=== PATIENT | female | born 1945 | race Caucasian/White ===

== ENCOUNTER 2019-09-28 22:22 | Emergency (ER) | payer MEDICARE, OTHER ==
[2019-09-28] MEDS ORDERED: XYLOCAINE 1%/Epi 1:100000 MDV 20 ML IJ ONE (22:35)
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
[2019-09-28 23:05] VITALS: O2SAT 97
[2019-09-29] MEDS ORDERED: Adacel Vial IM ONE ×2 (00:08)
[2019-09-29 00:32] VITALS: BP 105/66; PULSE 71
--- NOTE | 2019-09-29 09:39 | XRAY ---
Indication: Head injury with laceration. Multiple contiguous axial images obtained through the head without contrast. Comparison: None. Minimal periventricular degenerative micro-ischemia bilaterally. No acute intracranial hemorrhage, abnormal extra-axial fluid collection, or mass effect. Fourth ventricle is midline without hydrocephalus. Cortes-white matter differentiation preserved. Scalp laceration near the vertex. Bony calvarium intact. Visualized paranasal sinuses and mastoid air cells are clear. Impression: Minimal degenerative micro-ischemia. Scalp laceration. No underlying fracture or acute intracranial abnormalities. Comment: Preliminary interpretation was made by [facility]. No critical discrepancy. CTDI 43.07
== END 2019-09-29 00:35 | disposition home or self-care (01) ==
LOC: ED 22:22
DX: S01.01XA Laceration without foreign body of scalp, initial encounter (principal); L98.9 Disorder of the skin and subcutaneous tissue, unspecified
CPT/HCPCS: 12004; 70450; 90471; 90715; 96372; 99284

== ENCOUNTER 2020-06-15 15:12 | Emergency (ER) | payer MEDICARE, OTHER ==
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
--- NOTE | 2020-06-15 16:23 | XRAY ---
Indication: Wrist pain following fall. Comparison: None 3 view right hand demonstrates nondisplaced 5th metacarpal base acute fracture. Elsewhere mild osteopenia, moderate degenerative changes 5th DIP, and mild degenerative changes 1st metacarpal multangular scaphoid articulation. No other bony, articular, or soft tissue abnormalities.
[2020-06-15 16:26] VITALS: BP 91/53; PULSE 68
[2020-06-15 16:36] VITALS: O2SAT 99
== END 2020-06-15 17:00 | disposition home or self-care (01) ==
LOC: ED 15:12
DX: S62.306A Unspecified fracture of fifth metacarpal bone, right hand, initial encounter for closed fracture (principal); S00.93XA Contusion of unspecified part of head, initial encounter; S00.81XA Abrasion of other part of head, initial encounter; M79.641 Pain in right hand; W05.0XXA Fall from non-moving wheelchair, initial encounter
CPT/HCPCS: 73130; 99283